=== PATIENT | male | born 1980 | race Two or more races ===

== ENCOUNTER 2024-01-04 10:51 | Emergency (ER) | payer OTHER ==
[~2024-01-04] VITALS: Ht 172.7 cm; Wt 90.7 kg
[2024-01-04 10:58] VITALS: BP 132/73; TEMP 97.9; O2SAT 99
[2024-01-04] MEDS ORDERED: NAPR-1164 PO (11:23)
== END 2024-01-04 12:02 | disposition home or self-care (01) ==
LOC: ER 10:59
DX: M25.531 Pain in right wrist (principal); F17.200 Nicotine dependence, unspecified, uncomplicated; Z79.899 Other long term (current) drug therapy